=== PATIENT | male | born 1945 | race Caucasian/White ===

== ENCOUNTER → 2019-01-16 | Outpatient (CLI) | payer MEDICARE | LOC: COL.RAD 01-14 10:30 | DX: N50.89 Other specified disorders of the male genital organs (principal) ==

== ENCOUNTER 2020-05-16 09:38 | Inpatient (IN) | payer MEDICARE, MEDICAID ==
[~2020-05-16] VITALS: Wt 100.9 kg
[2020-05-16 11:44] LABS: BASO % 0.8 % (0.0-2.0); EOS # 0.1 (0.0-0.7); EOS % 2.1 % (0-4.0); GRAN # 3.7 (1.4-6.5); GRAN % 70.3 % (42.2-75.2); HEMOGLOBIN 11.8 g/dl (13.5-18.0); LYMPH # 0.6 (1.2-3.4); LYMPH % 11.3 % (20.0-51.0); MEAN CELL VOLUME 98 fl (80.0-100.0); MEAN CORPUSCULAR HEMOGLOBIN 31 pg (27.0-31.0); MEAN CORPUSCULAR HGB CONC 32 g/dl (33.0-37.0); MEAN PLATELET VOLUME 10.6 fl (7.4-10.4); MONO # 0.8 (0.1-0.6); MONO % 15.1 % (1.7-9.3); PLATELET COUNT 277 K/mm3 (130-400); RED BLOOD COUNT 3.77 M/mm3 (4.20-5.60); REDCELL DISTRIBUTION WIDTH-CV 15.3 % (11.5-14.5)
[2020-05-16 11:45] LABS: HEMATOCRIT 36.9 % (42.0-52.0)
[2020-05-16 11:52] LABS: CALCIUM 8.7 mg/dL (8.4-10.2); CREATININE, serum 0.78 (0.66-1.25); POTASSIUM 4.1 mmol/L (3.4-5.0)
[2020-05-16 11:58] LABS: COLLECTION METHOD CLEAN CATCH
[2020-05-16 12:05] LABS: PH 5 (5-8); SQUAMOUS EPITHELIAL None Seen /hpf; URINE APPEARANCE Clear; URINE BACTERIA Moderate /hpf; URINE BILIRUBIN Negative (NEGATIVE); URINE BLOOD Negative (NEGATIVE); URINE COLOR Yellow; URINE GLUCOSE Negative (NEGATIVE); URINE KETONE Negative (NEGATIVE); URINE LEUKOCYTE ESTERASE 1+ (NEGATIVE); URINE NITRATE Negative (NEGATIVE); URINE PROTEIN(semi-quant) Negative (NEGATIVE); URINE RBC 0-2 /hpf; URINE UROBILINOGEN Negative (NEGATIVE)
[2020-05-16] MEDS ORDERED: TYLENOL 325MG325 MG PO (13:14)
[2020-05-16] MEDS ORDERED: TYLENOL 500MG500 MG PO (13:15)
[2020-05-16] MEDS ORDERED: CRANBERRY450 MG PO (13:17)
[2020-05-16] MEDS ORDERED: GOOD SENSE TUS120 ML PO (13:18)
[2020-05-16] MEDS ORDERED: FLOMAX 0.40.4 MG/CAP PO (13:19)
[2020-05-16] MEDS ORDERED: LASIX 40MG TABL40 MG PO (13:20)
[2020-05-16] MEDS ORDERED: PRINIVIL40 MG PO (13:20)
[2020-05-16] MEDS ORDERED: GOOD SENSE400 MG/5 M PO (13:22)
[2020-05-16] MEDS ORDERED: MIRALAX PA17 GM/Dose PO (13:23)
[2020-05-16] MEDS ORDERED: BION TEARS EYE1 EAC1 OP (13:24)
[2020-05-16] MEDS ORDERED: PERCOCET 325 MG1 TA2 PO ×2 (13:25→15:15)
[2020-05-16] MEDS ORDERED: SINEMET 10/101 UDTAB PO (13:26)
[2020-05-16] MEDS ORDERED: TRIAMCINOLONE A15 G3 TP (13:26)
[2020-05-16] MEDS ORDERED: ZOLOFT 25MG25 MG PO (13:27)
[2020-05-16 13:28] LABS: ALBUMIN 3.8 gm/dL (3.5-5.0); BILIRUBIN UNCONJUGATED 0.6 mg/dL (0.0-1.1); BILIRUBIN,DIRECT 0.2 mg/dL (0.0-0.4); BILIRUBIN,TOTAL 0.7 mg/dL (0.0-1.0)
--- NOTE | 2020-05-16 15:30 | NUR ---
Pt arrived in room 354, he is able to tell me where he is as well as the president. Does think it's still April. Pt is able to tell me where he lives. Denies pain. No SOB, but does have audible wheezing, lungs CTA. Pt pulled out IV from ER. New IV started to RFA wrapped in krishna wrap. SCD's placed to bilateral lower extremities. Pt ordered hamburger and fries, pt able to eat without difficulties despite having no teeth. Speech was at bedside and stated he did well. Fall precautions in place, bed alarm in place.
[2020-05-16 16:26] VITALS: BP 148/75; PULSE 89; TEMP 98.2
--- NOTE | 2020-05-16 17:30 | NUR ---
Report with LOTUS Allen. Care resumed by this nurse for remaining of shift. Pt resting in bed with eyes closed, resp even and unlabored. Bed alarm on.
--- NOTE | 2020-05-16 18:15 | NUR ---
Pt awake now, fidgeting in the bed, intermittently turning to try to get up and agitated by the SCD's. SCD's removed at this time and pt assisted with repositioning. Call light in reach. Bed alarm on.
--- NOTE | 2020-05-16 19:07 | NUR ---
Report to LOTUS Matson.
[2020-05-16 20:23] VITALS: BP 144/81; PULSE 82; TEMP 98.1
--- NOTE | 2020-05-16 20:30 | NUR ---
PATIENT WAS RECEIVED CALM IN BED,DUE MEDS GIVEN,ASSESSMENT DONE.DENIES PAIN.PERICARE WAS DONE.NO OTHER NEEDS AT THIS TIME.
[2020-05-17] VITALS (7 sets, daily range): BP systolic 114–175; BP diastolic 49–91; PULSE 64–84; TEMP 98–98.5
--- NOTE | 2020-05-17 05:23 | NUR ---
PATIENT HAD A CALM NIGHT,DENIES PAIN,ON RA.NO OTHER NEEDS AT THIS TIME
[2020-05-17 07:14] LABS: BASO % 0.5 % (0.0-2.0); EOS # 0.2 (0.0-0.7); EOS % 2.8 % (0-4.0); GRAN % 69.8 % (42.2-75.2); HEMOGLOBIN 10.7 g/dl (13.5-18.0); LYMPH # 0.7 (1.2-3.4); LYMPH % 12.5 % (20.0-51.0); MEAN CELL VOLUME 96 fl (80.0-100.0); MEAN CORPUSCULAR HEMOGLOBIN 31 pg (27.0-31.0); MEAN CORPUSCULAR HGB CONC 32 g/dl (33.0-37.0); MEAN PLATELET VOLUME 11.2 fl (7.4-10.4); MONO # 0.8 (0.1-0.6); MONO % 14.1 % (1.7-9.3); PLATELET COUNT 256 K/mm3 (130-400); RED BLOOD COUNT 3.47 M/mm3 (4.20-5.60); REDCELL DISTRIBUTION WIDTH-CV 15.1 % (11.5-14.5)
[2020-05-17 07:18] LABS: HEMATOCRIT 33.4 % (42.0-52.0)
[2020-05-17 07:22] LABS: CALCIUM 8.5 mg/dL (8.4-10.2); CREATININE, serum 0.69 (0.66-1.25); POTASSIUM 4.3 mmol/L (3.4-5.0)
--- NOTE | 2020-05-17 07:22 | NUR ---
Pt assessment complete. Pt is able to tell me where he is and who the president is. He does think its still April. States he lives in [place]. Denies any pain. No SOB. Pt incontinent of urine, kelechi care provided. Pt assisted with two people to the recliner for breakfast. Asking if he gets to get home. Dressing to head CDI, large bump noted to the site. Fall precautions in place.
--- NOTE | 2020-05-17 10:06 | NUR ---
Initial visit; Patient thanked Ornament Stitcher for offering God's blessings for healing.
--- NOTE | 2020-05-17 11:04 | NUR ---
The patient has a history of dementia. The patient's DPOA-HC is in EMR and it designates his son, Tucker (ph#[phone]). ABY attempted to contact Tucker to discuss discharge planning. His , Jennifer, answered the phone. Jennifer reports that Tucker is at work right now. Jennifer confirms that the patient resides at [facility] for long-term care and that the plan is for the patient to return back to [facility] upon discharge. His PCP is Dr. Taylor Granados. ABY attempted to contact Tucker's cell phone. His voicemail was full. ABY contacted and faxed updates to [facility].
--- NOTE | 2020-05-17 18:35 | NUR ---
Pt up in the chair most of the day. Intermittently confused. Up ambulating more through the day, up with one assist and walker to the restroom. Remained on RA. Dressing to head has scant amount of drainage. One dose of Apresoline administered for SBP >170. Fall precautions in place.
--- NOTE | 2020-05-17 19:45 | NUR ---
PATIENT WAS RECEIVED FAIR IN BED,DENIES PAIN.NO OTHER NEEDS AT THIS TIME
--- NOTE | 2020-05-17 20:50 | NUR ---
PATIENT IS AGITATED WANTS TO GET OUT OF BED.SEROQUEL GIVEN
[2020-05-18 04:22] VITALS: BP 127/55; PULSE 60; TEMP 97.9
--- NOTE | 2020-05-18 05:47 | NUR ---
PATIENT SLEPT WELL,NO AGITATION NOTED AT THIS TIME.NO CONCERNS RAISED
--- NOTE | 2020-05-18 06:50 | NUR ---
Report with LOTUS Matson. Pt resting in bed, requests drink of water which is provided. Call light in reach. Bed alarm on.
[2020-05-18 07:16] LABS: BASO % 0.5 % (0.0-2.0); EOS # 0.2 (0.0-0.7); EOS % 3.8 % (0-4.0); GRAN # 3.8 (1.4-6.5); HEMOGLOBIN 10.9 g/dl (13.5-18.0); LYMPH # 0.9 (1.2-3.4); LYMPH % 15.3 % (20.0-51.0); MEAN CELL VOLUME 96 fl (80.0-100.0); MEAN CORPUSCULAR HEMOGLOBIN 31 pg (27.0-31.0); MEAN CORPUSCULAR HGB CONC 33 g/dl (33.0-37.0); MONO # 0.8 (0.1-0.6); MONO % 13.2 % (1.7-9.3); PLATELET COUNT 254 K/mm3 (130-400); RED BLOOD COUNT 3.49 M/mm3 (4.20-5.60); REDCELL DISTRIBUTION WIDTH-CV 15.1 % (11.5-14.5)
[2020-05-18 07:19] LABS: HEMATOCRIT 33.4 % (42.0-52.0)
[2020-05-18 07:35] LABS: CALCIUM 8.8 mg/dL (8.4-10.2); CREATININE, serum 0.83 (0.66-1.25); POTASSIUM 4.3 mmol/L (3.4-5.0)
[2020-05-18 07:48] VITALS: BP 158/71; PULSE 68; TEMP 97.8
--- NOTE | 2020-05-18 08:30 | NUR ---
Assessment complete. Pt sitting up in chair eating breakfast, A&O x 3. Pt denies pain at this time. Dressing over occiput laceration CDI. Saline lock IV to right forearm without s/s of complications. No further needs reported. Call light in reach. Chair alarm on.
[2020-05-18] MEDS ORDERED: OMNICEF 300MG300 MG PO (08:39)
[2020-05-18 10:18] VITALS: BP 158/71; PULSE 68; TEMP 97.8
--- NOTE | 2020-05-18 10:48 | NUR ---
The patient is ready to d/c today. ABY notified Eugenia at [facility]. Eugenia reports that they can waive the Medicare 3 midnight rule and requested SNF orders. ABY informed the PA. ABY attempted to contact the patient's son, Tucker, twice on his cell phone to inform. His voicemail is full and ABY was unable to leave a message. ABY contacted his and Jennifer's home phone twice. ABY left a voicemail. The patient is to discharge today, 05/18, back to [facility] for a skilled stay. Transportation was scheduled at 1300, via [place]. ABY informed the patient's RN of the time. No additional needs at this time.
[2020-05-18 11:08] VITALS: BP 138/65; PULSE 69; TEMP 98.3
--- NOTE | 2020-05-18 13:15 | NUR ---
Pt discharged back home to [facility], escorted out of facility via WC accompanied by BRO.
[2020-11-28] MEDS ORDERED: OMNICEF 300MG300 MG PO (16:14)
== END 2020-05-18 13:37 | DRG 689 ==
LOC: COL.ER 09:38 → MEDICAL 12:18
PROVIDERS: Emergency Medicine; Physician Assistant; ADMIT Internal Medicine
PROC: 0HQ0XZZ Repair Scalp Skin, External Approach (ICD-10-PCS; principal; 2020-05-16)
DX: N39.0 Urinary tract infection, site not specified (principal); G93.41 Metabolic encephalopathy; R65.10 Systemic inflammatory response syndrome (SIRS) of non-infectious origin without acute organ dysfunction; I10 Essential (primary) hypertension; G20 Parkinson's disease; F32.9 Major depressive disorder, single episode, unspecified; S01.01XA Laceration without foreign body of scalp, initial encounter; M19.90 Unspecified osteoarthritis, unspecified site; Z66 Do not resuscitate; Z20.822 Contact with and (suspected) exposure to COVID-19; N40.0 Benign prostatic hyperplasia without lower urinary tract symptoms; G46.7 Other lacunar syndromes; F02.80 Dementia in other diseases classified elsewhere, unspecified severity, without behavioral disturbance, psychotic disturbance, mood disturbance, and anxiety; M79.89 Other specified soft tissue disorders; D64.9 Anemia, unspecified; W19.XXXA Unspecified fall, initial encounter; F03.90 Unspecified dementia, unspecified severity, without behavioral disturbance, psychotic disturbance, mood disturbance, and anxiety; Z86.16 Personal history of COVID-19; Z86.73 Personal history of transient ischemic attack (TIA), and cerebral infarction without residual deficits
CPT/HCPCS: 99223-AI; 99232-AI; 99239; J0360; J0696

== ENCOUNTER 2020-06-24 19:54 | Inpatient (IN) | payer MEDICARE, MEDICAID ==
[~2020-06-24] VITALS: Ht 180.3 cm; Wt 86.4 kg
[~2020-06-24 19:54] MED LIST: BION TEARS EYE1 EAC1 OP; CRANBERRY450 MG PO; FLOMAX 0.40.4 MG/CAP PO; GOOD SENSE TUS120 ML PO; GOOD SENSE400 MG/5 M PO; LASIX 40MG TABL40 MG PO; MIRALAX PA17 GM/Dose PO; OMNICEF 300MG300 MG PO; PERCOCET 325 MG1 TA2 PO; PRINIVIL40 MG PO; SINEMET 10/101 UDTAB PO; TRIAMCINOLONE A15 G3 TP; TYLENOL 325MG325 MG PO; TYLENOL 500MG500 MG PO; ZOLOFT 25MG25 MG PO
[2020-06-24 20:22] LABS: BASO % 0.2 % (0.0-2.0); EOS # 0.1 (0.0-0.7); EOS % 0.4 % (0-4.0); GRAN # 11.7 (1.4-6.5); GRAN % 88.4 % (42.2-75.2); HEMOGLOBIN 11.4 g/dl (13.5-18.0); LYMPH # 0.4 (1.2-3.4); MEAN CELL VOLUME 97 fl (80.0-100.0); MEAN CORPUSCULAR HEMOGLOBIN 31 pg (27.0-31.0); MEAN CORPUSCULAR HGB CONC 32 g/dl (33.0-37.0); MEAN PLATELET VOLUME 10.6 fl (7.4-10.4); MONO % 7.3 % (1.7-9.3); PLATELET COUNT 252 K/mm3 (130-400); REDCELL DISTRIBUTION WIDTH-CV 15.2 % (11.5-14.5)
[2020-06-24 20:24] LABS: HEMATOCRIT 35.8 % (42.0-52.0)
[2020-06-24 20:38] LABS: ALANINE AMINOTRANSFERASE 10 U/L (4-49); ALBUMIN 3.9 gm/dL (3.5-5.0); ALKALINE PHOSPHATASE 76 U/L (50-136); ANION GAP 7 mmol/L (7-16); AST,SGOT 23 U/L (15-37); BILIRUBIN,TOTAL 1.5 mg/dL (0.0-1.0); BLOOD UREA NITROGEN 25 mg/dL (9-20); C-REACTIVE PROTEIN 8.6 mg/dL (0.0-0.9); CALCIUM 8.6 mg/dL (8.4-10.2); CARBON DIOXIDE 28 mmol/L (22-30); CHLORIDE 104 mmol/L (98-107); CREATININE, serum 0.78 (0.66-1.25); GLUCOSE 116 mg/dL (74-106); SODIUM 139 mmol/L (137-145); TOTAL PROTEIN 7.2 gm/dL (6.4-8.2)
[2020-06-24 20:48] LABS: COLLECTION METHOD CATHETER
[2020-06-24 20:49] LABS: TROPONIN-I < 0.012 ng/mL (0.000-0.035)
[2020-06-24] MEDS ORDERED: CEPHALEXIN250 M1 PO ×2 (21:09→21:41)
[2020-06-24 21:10] LABS: MUCOUS Present /lpf; PH 5 (5-8); SQUAMOUS EPITHELIAL 0-2 /hpf; URINE APPEARANCE Clear; URINE BACTERIA None Seen /hpf; URINE BILIRUBIN Negative (NEGATIVE); URINE BLOOD Negative (NEGATIVE); URINE COLOR Yellow; URINE GLUCOSE Negative (NEGATIVE); URINE KETONE Trace (NEGATIVE); URINE LEUKOCYTE ESTERASE Trace (NEGATIVE); URINE NITRATE Positive (NEGATIVE); URINE PROTEIN(semi-quant) 1+ (NEGATIVE)
[2020-06-24] MEDS ORDERED: MIRALAX510G PO (21:10)
[2020-06-24] MEDS ORDERED: DESITIN MAXIMUM S40% TOP (21:16)
[2020-06-24] MEDS ORDERED: TYLENOL 500MG500 MG PO (21:39)
[2020-06-25] VITALS (7 sets, daily range): BP systolic 137–168; BP diastolic 64–79; PULSE 59–80; TEMP 98–98.9
--- NOTE | 2020-06-25 01:01 | NUR ---
PT ADMIT FROM ER PER CART. IS NOT ALERT OR ORIENTATED AT TIME OF ADMISSION. ASSESMENT OBTAINED AND HX DONE PER SENIOR LIVING PAPERWORK. WAKES UP BRIEFLY BUT THEN FALLS BACK ASLEEP. IV FLUIDS RUNNING PER ORER. RODAS ON PT, INC B/B.
--- NOTE | 2020-06-25 05:16 | NUR ---
RESTED THROUGH THE NIGHT WO INCIDENT. DID ATTEMPT TO PULL AT LINES TAKING OFF COBAIN AND TAPE OVERNIGHT REMINDED WHY IT WAS THERE AND LEFT IT ALONE. CHECKED AND CHANGED OFTEN. INTERMITTENT CONFUSION BUT WAS A LITTLE MORE ALERT TIME WENT BY TONIGHT. ASKING FOR A DRINK SEVERAL TIMES W ROUNDS AND DID OKAY WITHOUT COUGH SITTING UPRIGHT. NEEDS MET.
[2020-06-25 06:11] LABS: BASO % 0.2 % (0.0-2.0); EOS # 0.1 (0.0-0.7); EOS % 0.6 % (0-4.0); GRAN # 7.1 (1.4-6.5); GRAN % 85.5 % (42.2-75.2); HEMOGLOBIN 10.5 g/dl (13.5-18.0); LYMPH # 0.5 (1.2-3.4); LYMPH % 5.5 % (20.0-51.0); MEAN CELL VOLUME 99 fl (80.0-100.0); MEAN CORPUSCULAR HEMOGLOBIN 31 pg (27.0-31.0); MEAN CORPUSCULAR HGB CONC 32 g/dl (33.0-37.0); MONO # 0.6 (0.1-0.6); MONO % 7.8 % (1.7-9.3); PLATELET COUNT 209 K/mm3 (130-400); RED BLOOD COUNT 3.34 M/mm3 (4.20-5.60); REDCELL DISTRIBUTION WIDTH-CV 15.3 % (11.5-14.5)
--- NOTE | 2020-06-25 06:11 | NUR ---
CONSULT NOTIFIED PER PAGER PER DOC PREFERENCE. PAGED TO HIM EXACT MESSAGE [phone] SKYLER GAUTAM- YOU HAVE CONSULT RM [address] [facility] AT 0610AM.
[2020-06-25 06:24] LABS: CALCIUM 7.9 mg/dL (8.4-10.2); CREATININE, serum 0.64 (0.66-1.25); POTASSIUM 3.6 mmol/L (3.4-5.0)
--- NOTE | 2020-06-25 10:09 | NUR ---
Assessment completed, alert/ disoriented but cooperative and is able to follow commands and answer simple questions, denies pain or discomfort but report " just not feeling very good", WBC 13 on admit and down to 8.2 this morning, vital signs are stable and he is afebrile today/ had low grade temp upon admitt, blood cultures are pending, heart RRR/ distal pulses are palpable, lungs CTA/ no resp.difficulty and is on room air, patient is incontinent of bowel and bladder, frequent position changes and incontinent cares being provided, skin is intact, ate only small amount of breakfast/ protein supplement shake given and assisted with this, patient is high fall risk d/t confusion, bed alarm is set and call light in reach, denies other needs and we will continue to monitor
--- NOTE | 2020-06-25 11:56 | NUR ---
Rules Examiner visited with patient. Nothing else needed at this time.
--- NOTE | 2020-06-25 17:32 | NUR ---
steamtable worker contacted Tucker Kitchen WOLFGANG (P# [phone]) and was able to speak with is Emily also listed as a contact. Patient lives at [facility]. Patient's has DPOA on file. Patient sees physician at [facility] and uses [facility]. Patient is in termite control representative care and receives full nursing care for ADLs. Patient is confused, with baseline dementia. Emily reports that plan is to return to [facility] at discharge. Emily denies questions or concerns at this time. Social work will continue to follow. Please fax record updates to [facility] in the morning.
--- NOTE | 2020-06-25 20:00 | NUR ---
Assessment complete. Patient has been incontinent of urine and a smear of stool in his brief; linen change and pericare provided. NS infusing into left wrist IV. Patient has no complaints of pain. He is slightly drowsy and partially oriented. Hand tumbler plater equal. Call light in reach and bed alarm set.
[2020-06-26] VITALS (9 sets, daily range): BP systolic 153–194; BP diastolic 68–84; PULSE 56–78; TEMP 97.6–98.6
[2020-06-26 06:01] LABS: BASO % 0.3 % (0.0-2.0); EOS # 0.1 (0.0-0.7); EOS % 2.3 % (0-4.0); GRAN # 4.4 (1.4-6.5); HEMOGLOBIN 10.4 g/dl (13.5-18.0); LYMPH # 0.7 (1.2-3.4); LYMPH % 11.6 % (20.0-51.0); MEAN CELL VOLUME 99 fl (80.0-100.0); MEAN CORPUSCULAR HEMOGLOBIN 31 pg (27.0-31.0); MEAN CORPUSCULAR HGB CONC 32 g/dl (33.0-37.0); MONO # 0.9 (0.1-0.6); MONO % 14.2 % (1.7-9.3); PLATELET COUNT 211 K/mm3 (130-400); RED BLOOD COUNT 3.34 M/mm3 (4.20-5.60); REDCELL DISTRIBUTION WIDTH-CV 15.4 % (11.5-14.5)
[2020-06-26 06:14] LABS: ALBUMIN 3.2 gm/dL (3.5-5.0); BILIRUBIN,TOTAL 0.5 mg/dL (0.0-1.0); CALCIUM 7.9 mg/dL (8.4-10.2); CREATININE, serum 0.64 (0.66-1.25); POTASSIUM 3.7 mmol/L (3.4-5.0)
--- NOTE | 2020-06-26 09:27 | NUR ---
Patient drowsy, stated he didn't get much sleep last night. Afebrile ovenight, continued IV fluids and antibiotics. Discussed plan of care with provider with plans to transfer back to assisted 06/27. He asked about breakfast so we ordered for him. Breath sounds clear upon auscultating, heart sounds normal with regular rate and rhythm. Hand coal bagger equal bilaterally with weakness. Lower extremities exhibit weakness as well. Patient able to follow commands and express needs. He has no questions or concerns at this time, will continue to monitor.
--- NOTE | 2020-06-26 19:01 | NUR ---
Received report from Lalo. Patient in bed, asleep.
--- NOTE | 2020-06-26 20:20 | NUR ---
Patient's blood pressure was elevated. It was 193/79 at 1901H. Rechecked again and it is 194/74. Called Emy LEE regarding high blood pressure. She ordered hydralazine IV. Changed patient's briefs and repositoned him in bed. He is still drowsy but follows commands. Will recheck on his blood pressure again later.
--- NOTE | 2020-06-26 21:25 | NUR ---
Patient's blood pressure is now at 153/84. Updated Emy IMPLEMENTATION CONSULTANT via phone call.
[2020-06-27 03:15] VITALS: BP 178/74; BP 188/81; PULSE 60; TEMP 98.3
--- NOTE | 2020-06-27 06:28 | NUR ---
Patient asleep most of the night. He woke up at 0530H asking where he is right now and how did he get here. Reoriented patient. Changed his briefs and repositioned in bed.
--- NOTE | 2020-06-27 07:22 | NUR ---
Patient resting in bed at this time. Patient was agitated and voicing a want to leave the hospital. Patient's given water and repositioned. Patient agitation resolved. Will continue to monitor. NS running as ordered. Patient denies any pain, discomfort, or futher needs at this time. Call light within reach. Fall percautions in place.
[2020-06-27 07:52] VITALS: BP 157/79; PULSE 64; TEMP 97.6
[2020-06-27] MEDS ORDERED: OMNICEF 300MG300 MG PO (08:56)
--- NOTE | 2020-06-27 09:20 | NUR ---
The patient is to discharge today, 06/27, back to [facility] for SNF. Transportation was scheduled at 1300, via [facility]. ABY informed the patient's RN and his DPOA-HC/cousin, Tucker, of the time. They were both agreeable to the time. ABY also read the IM form outloud to Tucker over the phone. Tucker verbalized understnading and gave SW approval to sign the form on his behalf. No additional needs a this time.
--- NOTE | 2020-06-27 10:02 | NUR ---
Orders put in for paitent discharge. Covid test collected.
[2020-06-27 11:35] VITALS: BP 157/79; PULSE 64; TEMP 97.6
--- NOTE | 2020-06-27 12:48 | NUR ---
First visit from the shark biologist. No needs right now.
--- NOTE | 2020-06-27 13:22 | NUR ---
Patient being transferred back to [facility]. Patient is A&O and is eager to get back home. VS stable. Patient took IV out by himself earlier in the shift. IV catheter intact no signs of phlebitis. Report called to LOTUS Hardwick at [facility]. Patient escorted out of building at 1330.
[2020-11-28] MEDS ORDERED: OMNICEF 300MG300 MG PO (16:14)
== END 2020-06-27 13:30 | disposition home or self-care (01) | DRG 871 ==
LOC: COL.ER 19:54 → MEDICAL 22:21 → COL.ER 22:21 → MEDICAL 22:21
PROVIDERS: Emergency Medicine; Nurse Practitioner Family; Physician Assistant; ADMIT Internal Medicine
DX: A41.9 Sepsis, unspecified organism (principal); G93.41 Metabolic encephalopathy; N39.0 Urinary tract infection, site not specified; G93.40 Encephalopathy, unspecified; I10 Essential (primary) hypertension; G20 Parkinson's disease; N40.0 Benign prostatic hyperplasia without lower urinary tract symptoms; F32.9 Major depressive disorder, single episode, unspecified; M19.90 Unspecified osteoarthritis, unspecified site; F02.80 Dementia in other diseases classified elsewhere, unspecified severity, without behavioral disturbance, psychotic disturbance, mood disturbance, and anxiety; R91.8 Other nonspecific abnormal finding of lung field; Z86.16 Personal history of COVID-19
CPT/HCPCS: OP; 99232-AI; 99233-AI; 99239; J0360; J0696; J1650; J7030; Q9967

== ENCOUNTER → 2020-07-13 | Outpatient (CLI) | payer MEDICARE, MEDICAID ==
[~2020-07-13] MED LIST changes: +CEPHALEXIN250 M1 PO; +DESITIN MAXIMUM S40% TOP; +MIRALAX510G PO
== END ==
LOC: COL.RAD 09:33
DX: N28.9 Disorder of kidney and ureter, unspecified (principal); E27.9 Disorder of adrenal gland, unspecified; R91.8 Other nonspecific abnormal finding of lung field
CPT/HCPCS: Q9967

== ENCOUNTER → 2021-07-21 | Outpatient (CLI) | payer MEDICARE, MEDICAID ==
[~2021-07-21] MED LIST changes: +AL-MAG HYDROX-S30 ML PO; +APRESOLINE 25MG25 MG PO; +ATIVAN 0.50.5 MG/TAB PO; +CATAPRES 0.1MG0.1 MG PO; +DEMADEX10 MG PO; +DIAPERRASHOINT TOP; +K-DUR 10 MEQ T10 MEQ PO; +PROAMATINE2.5 MG PO; -TRIAMCINOLONE A15 G3 TP; +TRIAMCINOLONE A15 GM TP; +VOLTAREN GEL 1%1 TU TP
== END ==
LOC: COL.RAD 10:31
DX: M25.551 Pain in right hip (principal); R29.6 Repeated falls

== ENCOUNTER 2021-08-07 18:27 | Inpatient (IN) | payer MEDICARE, MEDICAID ==
[~2021-08-07] VITALS: Ht 182.9 cm; Wt 102.3 kg
[~2021-08-07 18:27] MED LIST changes: -AL-MAG HYDROX-S30 ML PO; -APRESOLINE 25MG25 MG PO; -ATIVAN 0.50.5 MG/TAB PO; -CATAPRES 0.1MG0.1 MG PO; -DEMADEX10 MG PO; -DIAPERRASHOINT TOP; -K-DUR 10 MEQ T10 MEQ PO; -PROAMATINE2.5 MG PO; -VOLTAREN GEL 1%1 TU TP
[2021-08-07 19:20] LABS: BASO % 0.2 % (0.0-2.0); EOS % 0.3 % (0.0-4.0); GRAN # 13.4 K/mm3 (1.4-6.5); GRAN % 86.5 % (42.2-75.2); HEMATOCRIT 43.1 % (42.0-52.0); HEMOGLOBIN 14.2 g/dl (13.5-18.0); LYMPH # 0.7 K/mm3 (1.2-3.4); LYMPH % 4.5 % (20.0-51.0); MEAN CELL VOLUME 95 fl (80.0-100.0); MEAN CORPUSCULAR HEMOGLOBIN 31 pg (27-31); MEAN CORPUSCULAR HGB CONC 33 g/dl (33.0-37.0); MEAN PLATELET VOLUME 10.4 fl (7.4-10.4); MONO # 1.2 K/mm3 (0.1-0.6); PLATELET COUNT 307 K/mm3 (130-400); RED BLOOD COUNT 4.55 M/mm3 (4.20-5.60); REDCELL DISTRIBUTION WIDTH-CV 14.7 % (11.5-14.5)
[2021-08-07 19:39] LABS: ALBUMIN 4.2 gm/dL (3.4-4.8); BILIRUBIN,TOTAL 1.6 mg/dL (0.2-1.2); C-REACTIVE PROTEIN 16.15 mg/dL (0.00-0.50); CALCIUM 9.6 mg/dL (8.4-10.2); CREATININE, serum 0.97 mg/dL (0.72-1.25); TOTAL PROTEIN 8.7 gm/dL (6.2-8.1)
[2021-08-07 19:45] LABS: TROPONIN-I 0.021 ng/mL (0.00-0.033)
[2021-08-07 21:22] LABS: COLLECTION METHOD CATHETER
[2021-08-07 21:30] LABS: MUCOUS Present (NOT PRESENT); PH 9 (5-8); SQUAMOUS EPITHELIAL None Seen /hpf (0-10); URINE APPEARANCE Cloudy (CLEAR/HAZY); URINE BACTERIA Rare /hpf (NONE SEEN); URINE BILIRUBIN Negative (NEGATIVE); URINE BLOOD 3+ (NEGATIVE); URINE COLOR Yellow (YELLOW); URINE GLUCOSE Negative (NEGATIVE); URINE KETONE Negative (NEGATIVE); URINE LEUKOCYTE ESTERASE 3+ (NEGATIVE); URINE NITRATE Positive (NEGATIVE); URINE PROTEIN(semi-quant) 2+ (NEGATIVE); URINE RBC >50 /hpf (0-2); URINE UROBILINOGEN Negative (NEGATIVE)
[2021-08-08 00:22] VITALS: BP 127/64; PULSE 72; TEMP 97.4
[2021-08-08 04:10] VITALS: BP 149/62; PULSE 80; TEMP 98.3
[2021-08-08 06:49] LABS: BASO % 0.1 % (0.0-2.0); GRAN # 13.5 K/mm3 (1.4-6.5); GRAN % 88.1 % (42.2-75.2); HEMATOCRIT 37.7 % (42.0-52.0); HEMOGLOBIN 12.3 g/dl (13.5-18.0); LYMPH # 0.5 K/mm3 (1.2-3.4); LYMPH % 3.4 % (20.0-51.0); MEAN CELL VOLUME 94 fl (80.0-100.0); MEAN CORPUSCULAR HEMOGLOBIN 31 pg (27-31); MEAN CORPUSCULAR HGB CONC 33 g/dl (33.0-37.0); MEAN PLATELET VOLUME 10.9 fl (7.4-10.4); MONO # 1.2 K/mm3 (0.1-0.6); MONO % 7.5 % (1.7-9.3); PLATELET COUNT 303 K/mm3 (130-400); RED BLOOD COUNT 4.02 M/mm3 (4.20-5.60); REDCELL DISTRIBUTION WIDTH-CV 14.7 % (11.5-14.5)
[2021-08-08 06:56] LABS: CALCIUM 9.2 mg/dL (8.4-10.2); CREATININE, serum 1.19 mg/dL (0.72-1.25); POTASSIUM 4.1 mmol/L (3.5-4.5)
[2021-08-08 07:30] VITALS: BP 141/47; PULSE 70; TEMP 99.3
--- NOTE | 2021-08-08 08:11 | NUR ---
Scheduled medications not given due to NPO status. ST order placed. Shift assessment preformed. Patient very lethargic. Opens eyes to speech, but does not keep them open. Able to follow commands. Patient oriented to self. Patient states that he is achy all over, patient repositioned. Adames catheter in place, securement device in use, no kinks in tubing. Urine is red tinged, mucous present. VSS. Call light in reach. Fall precautions in place.
--- NOTE | 2021-08-08 10:08 | NUR ---
LOTUS Browning from long-term updated patient's status.
[2021-08-08] MEDS ORDERED: TYLENOL 500MG500 MG PO (10:59)
[2021-08-08] MEDS ORDERED: ATIVAN 0.50.5 MG/TAB PO (11:01)
[2021-08-08] MEDS ORDERED: CATAPRES 0.1MG0.1 MG PO (11:02)
[2021-08-08] MEDS ORDERED: CRANBERRY450 MG PO (11:03)
[2021-08-08] MEDS ORDERED: GOOD SENSE TUS120 ML PO (11:10)
[2021-08-08 11:28] VITALS: BP 139/51; PULSE 69; TEMP 99.5
[2021-08-08] MEDS ORDERED: APRESOLINE 25MG25 MG PO (11:28)
[2021-08-08] MEDS ORDERED: PROAMATINE2.5 MG PO (11:29)
[2021-08-08] MEDS ORDERED: BION TEARS EYE1 EAC1 OP (11:31)
[2021-08-08] MEDS ORDERED: K-DUR 10 MEQ T10 MEQ PO (11:32)
[2021-08-08] MEDS ORDERED: DEMADEX10 MG PO ×2 (11:34→11:35)
[2021-08-08] MEDS ORDERED: VOLTAREN GEL 1%1 TU TP (11:37)
[2021-08-08] MEDS ORDERED: DIAPERRASHOINT TOP (11:39)
[2021-08-08] MEDS ORDERED: AL-MAG HYDROX-S30 ML PO (13:20)
[2021-08-08 15:23] VITALS: BP 156/68; PULSE 76; TEMP 98.7
--- NOTE | 2021-08-08 17:51 | NUR ---
Patient has had an uneventful day. Currently on RA. Adames catheter in place. Securment device in place, no kinks in tubing. Minimal output. Urine is red-tinged with mucus present. Patient has been lethargic. Follows commands. Conversation confused. No s/s of pain, discomfort, or SOA. Fall precautions in place. Call light in reach.
--- NOTE | 2021-08-08 19:31 | NUR ---
RECIEVED REPORT PATIENT HAS BEEN SLEEPING ALL DAY BUT IS ABLE TO SQUEEZE HANDS CHECK SKIN FOR INTEGRITY WITH MITTES IN PLACE. PATIENT NPO PENDING SPEECH CONSULT. UNABLE TO CONDUCT DUE TO PATIENT BEING VERY DROWSY AND SLEEPING.
[2021-08-08 20:00] VITALS: BP 150/72; PULSE 77; TEMP 99.6
[2021-08-09] VITALS (7 sets, daily range): BP systolic 131–169; BP diastolic 46–90; PULSE 67–697; TEMP 97.2–99.5
--- NOTE | 2021-08-09 03:42 | NUR ---
PATIENT STARTED TO BE MORE VERBAL AROUND 2AM MOVING AROUND MORE IN BED. PATIENT STATED HE WANTED WATER, SOME WORDS UNCOMPREHENSABLE. PROVIDING ORAL CARE THROUGHOUT SHIFT DUE TO PATIENT BEING NPO. REMOVED MITTENS AROUND 9PM PATIENT TOLERATED FOR 3HRS THEN BEGINNING TO REMOVE STAT LOCK FROM LEG AND PULLING ON BARRIOS CATHETER. APPLIED MITTENS TURNING AND REPOSITIONG PATIENT THROUGHOUT SHIFT. HOB ELEVATED LEGS ELEVATED ON PILLOWS FOR SKIN INTEGRITY. WILL CONTINUE TO MONITOR.
--- NOTE | 2021-08-09 05:34 | NUR ---
NOTED DECREASE OUTPUT ASKED TAX COLLECTION COORDINATOR IF SHE EMPTIED BARRIOS CATHETER, STATED HE HASN'T HAD ANY OUTPUT. BLADDER SCANNED PATIENT 727CC NOTED CALLED HOSPITALIST. STATED TO IRRIGATE BARRIOS CATHETER. IRRIGATED BARRIOS CATHETER NO RETURN, DEFLATED BALLOON ADVANCE CATHETER ABOUT AN INCH INSTANTLY URINE BEGAN TO FLOW THROUGH BARRIOS CATHETER REPLACED 10CC IN BALLOON STAT LOCK IN PLACE TO LEG 950CC NOTED ON OUTPUT. REMOVED MITTENS PATIENT RELAX ABD AREA SOFTENING AND NOT FIRM. HOSPITALIST ASSISTED WITH BARRIOS CATHETER ADVANCEMENT AND EVALUATION.
[2021-08-09 06:43] LABS: BASO % 0.1 % (0.0-2.0); EOS % 0.1 % (0.0-4.0); GRAN # 15.6 K/mm3 (1.4-6.5); GRAN % 88.7 % (42.2-75.2); HEMATOCRIT 38.7 % (42.0-52.0); HEMOGLOBIN 13.3 g/dl (13.5-18.0); LYMPH # 0.5 K/mm3 (1.2-3.4); LYMPH % 2.9 % (20.0-51.0); MEAN CELL VOLUME 96 fl (80.0-100.0); MEAN CORPUSCULAR HEMOGLOBIN 33 pg (27-31); MEAN CORPUSCULAR HGB CONC 34 g/dl (33.0-37.0); MEAN PLATELET VOLUME 11.2 fl (7.4-10.4); MONO # 1.3 K/mm3 (0.1-0.6); MONO % 7.6 % (1.7-9.3); PLATELET COUNT 308 K/mm3 (130-400); RED BLOOD COUNT 4.02 M/mm3 (4.20-5.60)
[2021-08-09 06:46] LABS: CREATININE, serum 3.57 mg/dL (0.72-1.25); POTASSIUM 4.4 mmol/L (3.5-4.5)
--- NOTE | 2021-08-09 08:14 | NUR ---
Scheduled medications held due to NPO status. Shift assessment preformed. Patient lethargic, but follows commands. Patient repositioned to left side. Heels elevated. Dickey catheter in place. Securement device in use. No kinks in tubing. Urine output yellow, but cloudy. Blood noted around dickey site. Dickey/pericare completed. Patient is currently resting in bed. No s/s of pain or discomfort at this time. Call light in reach. Fall precautions in place. VSS.
--- NOTE | 2021-08-09 10:23 | NUR ---
The patient has dementia. ABY contacted the patient's cousin/DPOA-HC, Tucker Kitchen (ph#[phone]), to discuss discharge plan. The patient resides at [facility] in LTC. His PCP is Dr. Taylor Granados and his DPOA-HC is in [facility], which designates his cousin (Tucker). Tucker confirms that the plan is for the patient to return back to [facility] upon discharge. ABY contacted and faxed updates to Eugenia at [facility]. SW to continue to follow. *Discharge plan: [facility]*
--- NOTE | 2021-08-09 17:22 | NUR ---
Patient has had an ok day. Fluids started per orders. Repositioned throughout shift. Dickey catheter in place. Securment device in use, no kinks in tubing. Adequate output noted this shift. Dickey/kelechi care completed. VSS. Patient lethargic and partially oriented. Mits placed on patient to prevent him from pulling out dickey and IV. Oral care provided. No s/s of pain or discomfort at this time. Call light in reach. Fall precautions in place.
--- NOTE | 2021-08-09 19:26 | NUR ---
ALERT MORE AWAKE THIS EVENING BARRIOS CATHETER WORKING ADEQUATELY THROUGHOUT THE DAY, SPEECH TO EVALUATE PATIENT TOMORROW. PATIENT STILL DROWSY PROVIDING MOUTH CARE THROUGHOUT SHIFT, TURNING AND REPOSITIONING ENCOURAGED THROUGHOUT SHIFT. REMAINS ON TELE PATIENT DOES HAVE MITTENS IN PLACE REMOVED FOR SKIN INTEGRITY. PATIENT CONTINUES TO PULL ON BARRIOS CATHETER WHEN REMOVED. PENDING BLOOD CULTURES. WILL CONTINUE TO MONITOR.
--- NOTE | 2021-08-09 23:41 | NUR ---
REMOVED MITTENS AROUND 9PM PATIENT SLEEPING AT THIS TIME PATIENT ISN'T PULLING ON IV OR BARRIOS CATHETER WILL CONTINUE TO MONITOR.
[2021-08-10 03:05] VITALS: BP 171/66; BP 175/77; PULSE 76; TEMP 99.1
--- NOTE | 2021-08-10 03:54 | NUR ---
PATIENT AWAKE AROUND 0300 ASKING FOR FOOD AND SOMETHING TO DRINK PROVIDED ORAL CARE PATIENT CONTINUES ON FLUIDS FOR HYDRATION. SPEECH TO EVALUATE PATIENT TODAY FOR DIET ORDERS.
[2021-08-10 06:39] LABS: BASO % 0.4 % (0.0-2.0); EOS # 0.3 K/mm3 (0.0-0.7); EOS % 2.4 % (0.0-4.0); GRAN # 8.5 K/mm3 (1.4-6.5); GRAN % 82.8 % (42.2-75.2); HEMATOCRIT 37.2 % (42.0-52.0); HEMOGLOBIN 12.1 g/dl (13.5-18.0); LYMPH # 0.6 K/mm3 (1.2-3.4); MEAN CELL VOLUME 94 fl (80.0-100.0); MEAN CORPUSCULAR HEMOGLOBIN 31 pg (27-31); MEAN CORPUSCULAR HGB CONC 33 g/dl (33.0-37.0); MONO # 0.8 K/mm3 (0.1-0.6); MONO % 7.7 % (1.7-9.3); PLATELET COUNT 297 K/mm3 (130-400); RED BLOOD COUNT 3.94 M/mm3 (4.20-5.60); REDCELL DISTRIBUTION WIDTH-CV 14.8 % (11.5-14.5)
[2021-08-10 06:56] LABS: CREATININE, serum 0.88 mg/dL (0.72-1.25); POTASSIUM 3.7 mmol/L (3.5-4.5)
[2021-08-10 07:42] VITALS: BP 156/68; PULSE 75; TEMP 98.8
--- NOTE | 2021-08-10 09:48 | NUR ---
Initial visit; Patient thanked Gauge And Weigh Machine Operator for looking in on him and offering God's blessings. Patient was receptive to having Gauge And Weigh Machine Operator keep him in her prayers.
--- NOTE | 2021-08-10 11:28 | NUR ---
Patient laying in bed upon entering the room. Patient is confused and not responding too much. Currently awaiting ST eval. Morning sinemet crushed and mixed w/ applesauce. Patient did well with this, so patient was given the rest of the applesauce and some water. Patient did not display any difficulty with this. Patient became more responsive after eating and drinking a little.
[2021-08-10 11:43] VITALS: BP 149/65; PULSE 73; TEMP 98.6
--- NOTE | 2021-08-10 13:22 | NUR ---
New dickey placed w/ the assistance of [facility] F[facility]. 18 Fr coude tip.
[2021-08-10 16:12] VITALS: BP 153/84; PULSE 76; TEMP 99.1
[2021-08-10 19:30] VITALS: BP 146/65; PULSE 77; TEMP 98.4
--- NOTE | 2021-08-10 20:20 | NUR ---
PT RESTING WITH EYES CLOSED. WILL NOT OPEN EYES PER REQUEST. NEUROCHECKS WNL EXCEPT PT REFUSES TO BE TESTED ON BLE. ABLE TO EQUALLY SQWEEZE HANDS UPON REQUEST. PT ANSWERS OCCASIONAL SIMPLE QUESTION BUT THATS IT. NOT AGITATED. TOOK ONLY 25% OF EVENING MEAL TONIGHT. CALL LIGHT IN REACH BED ALAR SET. PT DOES NOT ATTEMPT TO CLIMB OUT OF BED.
[2021-08-10 23:16] VITALS: BP 117/48; PULSE 58; TEMP 99.4
--- NOTE | 2021-08-11 01:30 | NUR ---
PT SLEEPING. NO DISTRESS.
[2021-08-11 03:41] VITALS: BP 157/53; PULSE 70; TEMP 99.4
--- NOTE | 2021-08-11 06:22 | NUR ---
PT HAS BEEN MOSTLY NONRESPONSIVE. OCCASIONALLY WILL TRY TO TALK BUT DIFFICULT TO UNDERSTAND. LAB HERE TO DRW BLOOD THIS AM. NO EVIDENCE OF PAIN. F/ DRAINS 600CC YELLOW URINE WITH SOME SEDIMENT NOTED.
[2021-08-11 06:54] LABS: BASO % 0.2 % (0.0-2.0); EOS # 0.2 K/mm3 (0.0-0.7); EOS % 2.1 % (0.0-4.0); GRAN # 6.9 K/mm3 (1.4-6.5); GRAN % 76.6 % (42.2-75.2); HEMOGLOBIN 11.5 g/dl (13.5-18.0); LYMPH # 0.8 K/mm3 (1.2-3.4); LYMPH % 8.7 % (20.0-51.0); MEAN CELL VOLUME 94 fl (80.0-100.0); MEAN CORPUSCULAR HEMOGLOBIN 31 pg (27-31); MEAN CORPUSCULAR HGB CONC 33 g/dl (33.0-37.0); MEAN PLATELET VOLUME 11.1 fl (7.4-10.4); MONO # 1.1 K/mm3 (0.1-0.6); MONO % 11.7 % (1.7-9.3); PLATELET COUNT 294 K/mm3 (130-400); RED BLOOD COUNT 3.73 M/mm3 (4.20-5.60); REDCELL DISTRIBUTION WIDTH-CV 14.8 % (11.5-14.5)
[2021-08-11 07:02] LABS: HEMATOCRIT 35.2 % (42.0-52.0)
[2021-08-11 07:10] LABS: CALCIUM 8.9 mg/dL (8.4-10.2); CREATININE, serum 0.8 mg/dL (0.72-1.25); POTASSIUM 3.7 mmol/L (3.5-4.5)
[2021-08-11 07:16] VITALS: BP 162/62; PULSE 61; TEMP 99.7
--- NOTE | 2021-08-11 08:08 | NUR ---
Patient laying in bed upon entering the room. Patient is sleeping and slighty arouses when spoken to. Patient being repositioned q2h d/t limited mobility. Adames catheter remains in place and is draining properly. Patient does not display any signs of discomfort at this time. Fall precautions in place for patient safety. Call light is w/in reach. Door to room remains open.
[2021-08-11 11:19] VITALS: BP 166/55; PULSE 70; TEMP 99.9
--- NOTE | 2021-08-11 14:24 | NUR ---
Clinical updates faxed to [facility]. Palliative consult requested by patient's RN
[2021-08-11 15:13] VITALS: BP 167/65; PULSE 55; TEMP 99.7
--- NOTE | 2021-08-11 18:23 | NUR ---
This RN expressed concern to Dr. Callahan today about barretttent's worsening mental status. Requested that a CT or MRI be done. MRI ordered by Dr. Callahan... Dr. Julian consulted as well.
[2021-08-11 20:25] VITALS: BP 172/72; PULSE 66; TEMP 98.7
[2021-08-11 21:28] VITALS: BP 164/78
--- NOTE | 2021-08-11 21:54 | NUR ---
Patient assessed around 2114. Patient with eyes closed, but is answering questions, and trying to follow directions. Denies pain and discomfort. Peripheral IV to left forearm. LS CTA in upper lobes, diminished in lower. Drank thickened liquids, no cough noted. Did take medications crushed in applesauce. In bed with call light within reach. Bed alarm on. Repositioned in bed.
[2021-08-12] VITALS (7 sets, daily range): BP systolic 127–193; BP diastolic 55–81; PULSE 52–70; TEMP 97.4–99.2
--- NOTE | 2021-08-12 05:39 | NUR ---
Patient awakens to verbal and tactile stimuli during the night. Answers questions, but continues to not open eyes. Denies pain and discomfort. In bed with call light within reach. Bed alarm on.
[2021-08-12 06:54] LABS: BASO % 0.5 % (0.0-2.0); EOS # 0.2 K/mm3 (0.0-0.7); EOS % 2.1 % (0.0-4.0); GRAN # 6.5 K/mm3 (1.4-6.5); GRAN % 75.9 % (42.2-75.2); HEMATOCRIT 38.2 % (42.0-52.0); HEMOGLOBIN 12.1 g/dl (13.5-18.0); LYMPH # 0.9 K/mm3 (1.2-3.4); LYMPH % 10.4 % (20.0-51.0); MEAN CELL VOLUME 97 fl (80.0-100.0); MEAN CORPUSCULAR HEMOGLOBIN 31 pg (27-31); MEAN CORPUSCULAR HGB CONC 32 g/dl (33.0-37.0); MEAN PLATELET VOLUME 10.7 fl (7.4-10.4); MONO # 0.9 K/mm3 (0.1-0.6); MONO % 9.9 % (1.7-9.3); PLATELET COUNT 281 K/mm3 (130-400); RED BLOOD COUNT 3.94 M/mm3 (4.20-5.60); REDCELL DISTRIBUTION WIDTH-CV 14.5 % (11.5-14.5)
[2021-08-12 07:10] LABS: CALCIUM 8.7 mg/dL (8.4-10.2); CREATININE, serum 0.77 mg/dL (0.72-1.25); POTASSIUM 3.8 mmol/L (3.5-4.5)
--- NOTE | 2021-08-12 08:09 | NUR ---
PT RESTING IN BED. MORNING MEDICATIONS GIVEN. SHIFT ASSESSMENT COMPLETED. PT BARRIOS DRAINING WELL. PT APPEARS DIAPHORETIC ON ASSESSMENT, VSS. PT ANSWERS QUESTIONS INAPPROPRIATELY AND BARELY OPENS EYES. PT FOLLOWING COMMANDS. WILL CONTINUE TO MONITOR.
--- NOTE | 2021-08-12 21:42 | NUR ---
Patient is alert, disoriented. Answers questions about self. Denies pain and discomfort. Indwelling dickey catheter patent, draining temi urine with sediment. Catheter care provided. Repositioned in bed. In bed with call light within reach. Bed alarm on.
[2021-08-13 03:27] VITALS: BP 133/97; PULSE 69; TEMP 97.9
--- NOTE | 2021-08-13 05:48 | NUR ---
Patient has been in bed with call light within reach. Repositioned in bed. Continues on IV fluids per orders. Bed alarm on.
[2021-08-13 07:39] VITALS: BP 142/48; PULSE 61; TEMP 98.6
--- NOTE | 2021-08-13 08:33 | NUR ---
PT RESTING IN BED. MORNING MEDICATIONS GIVEN. SHIFT ASSESSMENT COMPLETED. PT DROWSY. ABLE TO FOLLOW COMMANDS, RESPONDS TO QUESTIONS INAPPROPRIATELY. BARRIOS DRAINING WELL. ORAL CARE PROVIDED. WILL CONTINUE TO MONITOR.
[2021-08-13 11:58] VITALS: BP 145/61; PULSE 51; TEMP 97.7
[2021-08-13] MEDS ORDERED: OMNICEF 300MG300 MG PO (12:25)
--- NOTE | 2021-08-13 13:11 | NUR ---
DISCHARGE INSTRUCTIONS PRINTED. REPORT CALLED TO LOTUS STANTON AT [facility]. TRANSPORTATION ON THE WAY. WILL PREPARE PT FOR D/C.
--- NOTE | 2021-08-13 14:10 | NUR ---
ABY faxed over DC orders to [facility] @ 2:10 pm to [phone].
--- NOTE | 2021-08-13 14:15 | NUR ---
PT ESCORTED DOWN WITH BELONGS. WILL D/C FROM SYSTEM.
== END 2021-08-13 14:15 | DRG 698 ==
LOC: COL.ER 18:27 → MEDICAL 21:47
PROVIDERS: Nurse Practitioner; Physician Assistant; ADMIT Student in an Organized Health Care Education/Training Program
DX: T83.518A Infection and inflammatory reaction due to other urinary catheter, initial encounter (principal); G93.41 Metabolic encephalopathy; N17.9 Acute kidney failure, unspecified; E87.0 Hyperosmolality and hypernatremia; N39.0 Urinary tract infection, site not specified; E87.1 Hypo-osmolality and hyponatremia; D64.9 Anemia, unspecified; I10 Essential (primary) hypertension; M81.0 Age-related osteoporosis without current pathological fracture; G20 Parkinson's disease; F02.80 Dementia in other diseases classified elsewhere, unspecified severity, without behavioral disturbance, psychotic disturbance, mood disturbance, and anxiety; F32.A Depression, unspecified; N40.0 Benign prostatic hyperplasia without lower urinary tract symptoms; G46.7 Other lacunar syndromes; M19.90 Unspecified osteoarthritis, unspecified site; K59.00 Constipation, unspecified; B96.4 Proteus (mirabilis) (morganii) as the cause of diseases classified elsewhere; Y73.1 Therapeutic (nonsurgical) and rehabilitative gastroenterology and urology devices associated with adverse incidents; Z23 Encounter for immunization
CPT/HCPCS: 99222-AI; 99232-AI; 99233-AI; 99239; J0360; J0692; J0696; J1630; J1650; J7030; J7070

== ENCOUNTER 2023-12-20 17:49 | Emergency (ER) | payer MEDICARE, MEDICAID ==
[~2023-12-20] VITALS: Ht 169 cm; Wt 113.6 kg
[~2023-12-20 17:49] MED LIST changes: +ACETIC ACID 0.25%; +AL-MAG HYDROX-S30 ML PO; +ALBUTEROL0.83 MG/ML IH; +AMOXICILLIN 8751 TAB PO; +APRESOLINE 25MG25 MG PO; +AQUAPHOR BABY HEA41% TP; +ATIVAN 0.50.5 MG/TAB PO; +BION TEARS EYE1 EAC1 OU; +CATAPRES 0.1MG0.1 MG PO; +CEPHALEXIN500 M1 PO; +DEMADEX10 MG PO; +DIAPERRASHOINT TOP; +DULCOLAX S10 MG/SUPP RC; +GENTEAL MILD 1515 M1 OP; +GENTLE LAXATIVE10 MG RC; +GERI-LANTA 355355 ML PO; +GOOD NEIGH1200 MG/15 PO; +K-DUR 10 MEQ T10 MEQ PO; +KLOR-CON SPRIN10 MEQ PO; +MAXIPIMEIVSOL IV; +MILK OF MA400 MG/52 PO; +NYSTATIN CREAM15 GM TP; +PRINIVIL5 MG PO; +PROAMATINE2.5 MG PO; +PROTONIX 40MG T40 MG PO; +SEROQUEL 2525 MG/TAB PO; +VOLTAREN GEL 1%1 TU TP; +VOSOL 15 ML15 M1 IR; +VOSOL 15 ML15 M1 OT; +ZESTRIL 5MG5 MG PO
[2023-12-20 17:50] VITALS: TEMP 97.6
[2023-12-20 18:31] LABS: BASO % 0.4 % (0.0-2.0); EOS # 0.1 K/mm3 (0.0-0.7); EOS % 1.2 % (0.0-4.0); GRAN # 5.3 K/mm3 (1.4-6.5); LYMPH # 0.8 K/mm3 (1.2-3.4); LYMPH % 11.7 % (20.0-51.0); MEAN CELL VOLUME 98 fl (80.0-100.0); MEAN CORPUSCULAR HEMOGLOBIN 32 pg (27-31); MEAN CORPUSCULAR HGB CONC 33 g/dl (33.0-37.0); MEAN PLATELET VOLUME 10.5 fl (7.4-10.4); MONO # 0.7 K/mm3 (0.1-0.6); MONO % 9.8 % (1.7-9.3); PLATELET COUNT 302 K/mm3 (130-400); RED BLOOD COUNT 4.07 M/mm3 (4.20-5.60); REDCELL DISTRIBUTION WIDTH-CV 15.6 % (11.5-14.5)
[2023-12-20 18:35] LABS: INR 1.2 (0.8-3.0); PROTHROMBIN TIME 12.7 SECONDS (9.7-12.8)
[2023-12-20 18:46] LABS: ALANINE AMINOTRANSFERASE 9 U/L (0-55); ALBUMIN 3.7 g/dL (3.4-4.8); ALKALINE PHOSPHATASE 157 U/L (40-150); ANION GAP 12 mmol/L (7-16); AST,SGOT 15 U/L (5-34); BILIRUBIN,TOTAL 0.7 mg/dL (0.2-1.2); BLOOD UREA NITROGEN 21 mg/dL (8-26); C-REACTIVE PROTEIN 2.64 mg/dL (0.00-0.50); CALCIUM 9.2 mg/dL (8.4-10.2); CHLORIDE 107 mEq/L (98-107); CREATININE, serum 0.98 mg/dL (0.72-1.25); GLUCOSE 96 mg/dL (70-99); SODIUM 143 mEq/L (136-145); TOTAL PROTEIN 7.8 g/dl (6.2-8.1)
[2023-12-20 18:53] LABS: TROPONIN-I < 0.010 ng/mL (0.00-0.033)
[2023-12-20 19:09] LABS: COLLECTION METHOD CATHETER
[2023-12-20 19:15] LABS: URINE APPEARANCE CLOUDY (CLEAR/HAZY); URINE BLOOD TRACE (NEGATIVE); URINE COLOR YELLOW (YELLOW); URINE GLUCOSE NEGATIVE (NEGATIVE); URINE KETONE TRACE (NEGATIVE); URINE NITRATE POSITIVE (NEGATIVE); URINE PROTEIN(semi-quant) 1+ (NEGATIVE); URINE UROBILINOGEN 0.2 E.U/dL (0.2-1.0)
[2023-12-20] MEDS ORDERED: Albuterol 0.083% Neb Soln 2.5 MG/3 ML UD IH ONE (20:30)
[2023-12-20] MEDS ORDERED: AMOXICILLIN 8751 TAB PO (20:45)
[2023-12-20 21:30] VITALS: BP 142/73; PULSE 57
== END 2023-12-20 21:30 | disposition home or self-care (01) ==
LOC: COL.ER 17:49
PROVIDERS: Emergency Medicine
DX: T17.920A Food in respiratory tract, part unspecified causing asphyxiation, initial encounter (principal); Z86.16 Personal history of COVID-19; W44.8XXA Other foreign body entering into or through a natural orifice, initial encounter
CPT/HCPCS: J0295